=== PATIENT | female | born 1985 | race Two or more races ===

== ENCOUNTER 2019-07-12 21:42 | Emergency (ER) | payer MEDICAID ==
[~2019-07-12] VITALS: Ht 172.7 cm; Wt 113.4 kg
[2019-07-12] MEDS ORDERED: ALBU8.5H8 IH (22:09)
--- NOTE | 2019-07-12 22:20 | NUR ---
DENIES CHANGES IN B/B FUNCTION DENIES PARESTHESIAS NOR RADICULOPATHIES ON LE
--- NOTE | 2019-07-12 22:25 | NUR ---
MD AT BEDSIDE FOR HX AND PHYSICAL
[2019-07-12] MEDS ORDERED: CYCLOBENZAPRINE HCL 10 MG TABLET ONE (22:43)
[2019-07-12] MEDS ORDERED: KETOROLAC TROMETHAMINE 60 MG INJ IM ONE ×2 (22:44→22:45)
[2019-07-12] MEDS ORDERED: CYCLOBENZAPRINE HCL 10 MG TABLET PO ONE (22:45)
[2019-07-12 22:53] LABS: *BILIRUBIN,URIN NEGATIVE (NEGATIVE); *BLOOD, URINE NEGATIVE (NEGATIVE); *CLARITY,URINE CLEAR (CLEAR); *COLOR,URINE YELLOW (YELLOW); *KETONES,URINE NEGATIVE (NEGATIVE); *UROBILINOGEN,URINE 0.2 E.U./dl (NORMAL); LEUKOCYTE ESTERASE ,URINE NEGATIVE (NEGATIVE); NITRITE, URINE NEGATIVE (NEGATIVE); UGLUCOSE NEGATIVE (NEGATIVE)
[2019-07-12 23:10] LABS: *URINE HCG, QUAL NEGATIVE (NEGATIVE)
--- NOTE | 2019-07-13 00:08 | NUR ---
DCPatient discharged to home in stable conditon. Written and verbal after care instructions given. Patient verbalizes understanding of instructions. AMBULATORY W/ STABLE GAIT ALL BELONGINGS W/ PT
[2019-07-13 00:13] VITALS: BP 137/79
== END 2019-07-13 00:13 | disposition home or self-care (01) ==
LOC: ER 21:53
DX: M54.5 Low back pain (principal); R20.2 Paresthesia of skin; J45.909 Unspecified asthma, uncomplicated; Z88.0 Allergy status to penicillin; Z88.1 Allergy status to other antibiotic agents; Z88.5 Allergy status to narcotic agent; Z79.899 Other long term (current) drug therapy
CPT/HCPCS: 81001; 84703; 96372; 99283; J1885; A4663